=== PATIENT | male | born 1945 | race Caucasian/White ===

== ENCOUNTER 2018-04-11 19:12 | Emergency (ER) | payer MEDICARE, SELFPAY ==
[2018-04-11 19:16] VITALS: BP 167/74; PULSE 88; RESP 18; TEMP 36.9; O2SAT 96
--- NOTE | 2018-04-11 19:19 | DI.CT.S_ITS ---
PROCEDURE: CT HEAD/BRAIN WO CON INDICATIONS: code stroke TECHNIQUE: Noncontrast 4.5 mm thick angled axial sections acquired from the foramen magnum to the vertex, with coronal and sagittal reformats. For radiation dose reduction, the following was used: automated exposure control, adjustment of mA and/or kV according to patient size. COMPARISON: None. FINDINGS: Image quality: Excellent. CSF spaces: Basal cisterns are patent. No extra-axial fluid collections. The ventricles are symmetric in size and shape. There is mild cerebral volume loss, with resultant ventricular and sulcal prominence. Brain: No intracranial hemorrhage, mass, or mass effect. There are subcortical, periventricular and deep white matter hypodensities consistent with mild chronic small vessel ischemic changes. The vogel-white matter junction appears preserved. Skull and face: Calvarium and visualized facial bones appear intact, without suspicious lesions. Sinuses: Visualized sinuses and mastoids are clear. IMPRESSION: 1. No acute intracranial abnormality. Specifically, no imaging contraindications to TPA identified. 2. Mild chronic white matter small vessel ischemic changes. Findings discussed with Dr. Salazar on 04/11/18 at 7:30 PM. Dictated by: Matteo Osorio M.D. on 04/11/2018 at 19:28 Approved by: Matteo Osorio M.D. on 04/11/2018 at 19:33
--- NOTE | 2018-04-11 19:24 | ED.NEUROSD ---
HPI - Neuro Symptoms/Deficit General Chief Complaint: Neuro Symptoms/Deficit Stated Complaint: cant talk, about an hour Time Seen by Provider: 04/11/18 19:24 Source: family Mode of arrival: wheelchair Limitations: no limitations History of Present Illness HPI Narrative: Patient's states that around 1800, the patient began to have trouble speaking. She states she heard him clearing his throat in the kitchen and when she asked if he was okay, she could not understand his answer. Patient states that she came in and asked the patient if he needed to go to the hospital, the patient refused, stating he did not want go. However, after another hour, she noticed that the symptoms still had not improved, and so she decided to bring him. patient's states that the patient was not noted to have any motor deficits. She states that nothing like this has ever happened before, as far as he knows, the patient is healthy. She states he does not like to go to the doctor, and does not primary care physician. She does state that about a week ago, the patient experienced about a 1 hr visual loss in 1 eye. This spontaneously resolved, patient did not receive any medical intervention for this. Patient has not been ill with anything recently; he has no known history of hypertension, diabetes, or coronary artery disease. No prior documented history of stroke. Related Data Previous Rx's Medication Instructions Recorded aspirin 325 mg PO DAILY #90 tab 04/11/18 Allergies Allergy/AdvReac Type Severity Reaction Status Date / Time No Known Drug Allergies Allergy Verified 04/11/18 19:47 Review of Systems Review of Systems All systems reviewed & are unremarkable except as noted in HPI and below Constitutional Denies chills, Denies fever(s), Denies lethargy and Denies weakness Eyes Denies change in vision, Denies eye discharge, Denies irritation and Denies loss of vision ENT Ears, Nose, Mouth, and Throat: Denies change in voice, Denies neck pain and Denies sore throat Cardiovascular Denies chest pain, Denies irregular heart rhythm, Denies lightheadedness, Denies palpitations, Denies dyspnea, Denies dyspnea on exertion and Denies orthopnea Respiratory Denies cough, Denies dyspnea, Denies dyspnea on exertion and Denies wheezing Gastrointestinal Gastrointestinal: Denies abdominal pain, Denies change in bowel habits, Denies diarrhea, Denies nausea and Denies vomiting Genitourinary Denies hematuria, Denies flank pain, Denies urinary incontinence and Denies urinary urgency Musculoskeletal Denies neck pain Integumentary/Breasts Denies pruritus, Denies erythema, Denies rash and Denies wounds Neurologic Denies confusion, Denies loss of vision and Denies weakness Comments: Aphasia Psychiatric Denies anxiety, Denies confusion, Denies depression, Denies homicidal ideation and Denies suicidal ideation Endocrine Denies palpitations Hematologic/Lymphatic Denies easy bruising Allergic/Immunologic Denies wheezing [facility] Medical History Cataracts, bilateral (Acute) Surgical History Hx of cataract surgery (Acute) Social History Smoking Status: Former smoker Exam Initial Vital Signs Initial Vital Signs: Vital Signs Temperature 98.5 F 04/11/18 19:16 Pulse Rate 88 04/11/18 19:16 Respiratory Rate 18 04/11/18 19:16 Blood Pressure 167/74 H 04/11/18 19:16 Pulse Oximetry 96 04/11/18 19:16 Const General: cooperative and well developed Nutritional Appearance: well nourished Orientation: alert, awake, oriented x3 and not confused [facility] Head: normocephalic and atraumatic Ears: external ears normal Nose: external nose normal and No nasal discharge Face and sinus: face symmetric and No dry mucous membranes Mouth: oral mucosae normal and moist mucous membranes Teeth and gingiva: dentition normal Eyes General: appearance normal, both eyes and all related structures Eyelids: eyelids normal Conjunctivae: conjunctivae normal Sclera: sclerae normal Pupils: PERRL EOM: EOM intact bilaterally Neck Neck: normal visual inspection, trachea midline, No lymphadenopathy, No midline deformity and No JVD Lymphatic: No lymphedema Chest Chest: normal inspection of the chest Resp Effort & Inspection: normal respiratory effort, able to speak in complete sentences, no respiratory distress and no use of accessory muscles Auscultation: clear to auscultation bilaterally, no rales, no rhonchi and no wheezes Cardio Rate: regular rate Rhythm: regular rhythm Heart Sounds: no click, no gallops, no murmurs and no rubs Pulses: normal peripheral pulses GI Inspection: non-distended Palpation: soft, no hepatosplenomegaly, No guarding, No pulsatile mass and No tender Back/Spine/Pelvis Back: No CVA tenderness Cervical Spine: cervical ROM normal and No pain with cervical ROM Thoracic/Lumbar Spine: thoracic and lumbar spine normal to inspection Skin General: no rashes or lesions noted, No jaundice and No petechiae Neuro General: alert, oriented x3, no focal motor deficits and CN's II-XI intact bilaterally Speech: abnormal speech ( Patient has largely clear diction, although he occasionally stumbles in the pronunciation of the word. patient's responses are appropriate and coherent. His speech is measured, but does not stand out as being particularly slow. ) Motor: muscle tone normal throughout, strength 5/5 throughout, no pronator drift and no movement abnormalities noted Sensory Exam: no sensory deficits noted Other: NIHSS 2 (very soft--dysarthria) Extrem General: full ROM, no clubbing, cyanosis or edema, no pedal edema and no calf tenderness Psych Appearance: well kempt Mental Status: mental status grossly normal Attitude: cooperative Thought Content: normal and suicidality Judgment: judgment good Scores NIH Stroke Scale Level of Conciousness: Alert, keenly responsive Ask month/age: Answers both questions correctly. Open/close eyes, close hand: Performs both tasks correctly Best gaze horizontal: Normal Visual baez: No visual loss Facial palsy: Normal symetrical movement Left arm drift: No drift for full 10 sec Right arm drift: No drift for full 10 sec Left leg drift: No drift for full 10 sec Right leg drift: No drift for full 10 sec Limb ataxia: Absent Sensory on face/arms/legs: Normal, no sensory loss Best language: Mild to moderate, slurs some words Dysarthria: Mild to mod,some slurring Extinction or inattention: No abnormality Total NIH Stroke scale score: 2 Course Course Narrative: The patient was evaluated as a code stroke, and was taken directly to the CT scanner for a noncontrast head CT. This was performed and found to be negative per radiologist's interpretation. I did go in at this point and evaluate the patient, after which CT of the head and neck was ordered and performed. By this time, patient's speech was starting to improve, and while the nurse had found upon arrival, the patient was not able to articulate and all and spoke almost no words, the patient could now carry on a conversation, although he did state that he felt as though he was speaking more slowly than usual. The patient was taken for CT angio of the head and neck, which did not demonstrate any obvious arterial blockages in the brain circulation. However, it was found the patient had a greater than 90% stenosis of his left carotid artery. The remainder of the patient's workup was unremarkable. I did spend quite a bit of time speaking with this patient and his regarding the results. The patient has been given an aspirin here in the emergency department, and I did explain to him how important it is that he continues on an aspirin every day, To prevent further buildup of plaque in his left carotid artery. Additionally, the patient will need to follow up to discuss having his carotid either stented or having endarterectomy performed. I have discussed with the patient that if he does not address this issue by both the preventative action of taking aspirin in the definitive action of opening up his carotid artery, that he is at very high risk for further cerebral ischemic events, with potentially devastating sequelae. The patient and his both expressed understanding. At this point, the patient has not met criteria for tPA, both due to his improving neurologic status, his low NIHSS score to begin with, and also, his recent cerebral ischemic event in the form of the presumed TIA he had about a week ago. Orders Ordered: ED Orders 04/11/18 19:19 CT head/brain wo con Stat 04/11/18 19:34 CT angio head and neck Stat Comprehensive Metabolic Panel Stat 04/11/18 19:35 Complete Blood Count AUTO DIFF Stat Prothrombin Time INR Stat Discontinued Medications Aspirin (Aspirin) 325 mg PO NOW ONE Stop: 04/11/18 19:35 Last Admin: 04/11/18 19:42 Dose: 325 mg Sodium Chloride (Normal Saline 0.9%) 1,000 mls @ 1,000 mls/hr IV BOLUS ONE Stop: 04/11/18 20:33 Last Infusion: 04/11/18 21:14 Dose: 0 mls/hr Admin: 04/11/18 19:42 Dose: 1,000 mls/hr Vital Signs - 8 hr 04/11/18 19:16 04/11/18 20:25 04/11/18 20:51 Temperature 98.5 F Pulse Rate 88 78 71 Respiratory Rate 18 74 H 98 H Blood Pressure 167/74 H Blood Pressure [Left Arm] 150/78 H 143/64 H Pulse Oximetry 96 98 97 04/11/18 22:00 Temperature Pulse Rate 75 Respiratory Rate 19 Blood Pressure Blood Pressure [Left Arm] 131/59 L Pulse Oximetry 95 MDM - Neuro Symptoms/Deficit Medical Records Attestation: I reviewed the patient's medical records. Lab Data Attestation: I reviewed the patient's lab results. Result diagrams: 04/11/18 19:35 04/11/18 19:34 Lab Results 04/11/18 04/11/18 04/11/18 Range/Units 19:34 19:35 19:35 WBC 6.3 (4.5-11.0) X10^3/uL RBC 4.71 (4.5-5.9) X10^6/uL Hgb 14.6 (13.5-17.5) g/dL Hct 41.9 (41-53) % MCV 88.9 (80-100) fL MCH 30.9 (26-34) PG MCHC 34.7 (30-36) % RDW 13.2 (11.6-14.8) % Plt Count 245 (150-400) X10^3/uL Neut % (Auto) 47.1 L (50-75) % Lymph % (Auto) 39.9 (25-40) % [place] % (Auto) 8.5 (3-14) % Eos % (Auto) 4.0 (2-4) % Baso % (Auto) 0.5 (0-2) % Neut # (Auto) 2900 L (9365-5932) /uL PT 11.1 (10.1-12.7) SECONDS INR 1.0 (0.9-1.3) Sodium 144 (137-145) mmol/L Potassium 3.7 (3.4-5.1) mmol/L Chloride 104 (98-107) mmol/L Carbon Dioxide 26 (22-32) mmol/L BUN 11 (9-20) mg/dL Creatinine 0.90 (0.66-1.25) mg/dL Estimated GFR > 60.0 (>60) mL/min BUN/Creatinine Ratio 12.2 (6-22) Glucose 86 (80-110) mg/dL Calcium 9.4 (8.4-10.2) mg/dL Total Bilirubin 0.4 (0.2-1.3) mg/dL AST 31 (17-59) IU/L ALT 32 (21-72) IU/L Alkaline Phosphatase 57 (38-126) U/L Total Protein 7.1 (6.3-8.2) g/dL Albumin 4.4 (3.5-5.0) g/dL Globulin 2.7 (1.7-4.1) g/dL Albumin/Globulin Ratio 1.6 (1.0-2.8) Point of Care Testing Glucose POC [address] scan - head: Attestation: I personally reviewed and interpreted this imaging study as follows: My impression: negative Radiologist's impression: PROCEDURE: CT HEAD/BRAIN WO CON INDICATIONS: code stroke TECHNIQUE: Noncontrast 4.5 mm thick angled axial sections acquired from the foramen magnum to the vertex, with coronal and sagittal reformats. For radiation dose reduction, the following was used: automated exposure control, adjustment of mA and/or kV according to patient size. COMPARISON: None. FINDINGS: Image quality: Excellent. CSF spaces: Basal cisterns are patent. No extra-axial fluid collections. The ventricles are symmetric in size and shape. There is mild cerebral volume loss, with resultant ventricular and sulcal prominence. Brain: No intracranial hemorrhage, mass, or mass effect. There are subcortical, periventricular and deep white matter hypodensities consistent with mild chronic small vessel ischemic changes. The whalen-white matter junction appears preserved. Skull and face: Calvarium and visualized facial bones appear intact, without suspicious lesions. Sinuses: Visualized sinuses and mastoids are clear. IMPRESSION: 1. No acute intracranial abnormality. Specifically, no imaging contraindications to TPA identified. 2. Mild chronic white matter small vessel ischemic changes. Findings discussed with Dr. Salazar on 04/11/18 at 7:30 PM. Dictated by: Matteo Osorio M.D. on 04/11/2018 at 19:28 Approved by: Matteo Osorio M.D. on 04/11/2018 at 19:33 CT angio of head and neck: Radiologist's impression: [address] [address] [address] Scan Report Signed Patient: Shadi Campbell [facility]#: [id number] : 4Acct:[id number] Age/Sex: 73 / MDate of Service: 04/11/18 Loc: ED Accession Number: [id number] Procedure: CT angio head and neck Ordering Provider: Ness Salazar MD PROCEDURE: CT ANGIO HEAD AND NECK INDICATIONS: stroke-dysphasia TECHNIQUE: Pre-contrast 4.5 mm thick sections acquired from the foramen magnum to the vertex. After the administration of intravenous contrast, 1 mm thick sections acquired from the aortic arch through the [place] of [place]. Post-contrast 4.5 mm thick sections then re-acquired from the foramen magnum to the vertex. 3-dimensional pkzptci-yroxlaxhw-ruwfknfjjw (MIP) and/or volume rendering reformats were acquired of the central intracranial vasculature and neck separately. COMPARISON: [facility], CT, CT HEAD/BRAIN WO CON, 04/11/2018, 19:14. FINDINGS: Image quality: There is streak artifact from patient's dental hardware. BRAIN: CSF spaces: Basal cisterns are patent. No extra-axial fluid collections. Ventricles are normal in size and shape. Brain: No hematoma collections, mass, or mass effect. Whalen-white matter interface is preserved. No abnormal intracranial enhancement. Skull and face: Calvarium and facial bones appear intact, without suspicious lesions. Orbits appear normal. Sinuses: Sinuses and mastoids are clear. HEAD CT ANGIOGRAPHY: Anterior circulation: Intracranial internal carotid arteries are patent bilaterally with mild multifocal narrowing in the cavernous segments bilaterally. The anterior cerebral arteries appear patent bilaterally. The middle cerebral arteries also appear patent bilaterally. No high-grade stenosis or occlusion. No discrete filling defects. The anterior maintain artery is patent. No cerebral aneurysms identified. Posterior circulation: Visualized portions of the vertebral arteries demonstrate normal caliber, and join to form a normal appearing basilar artery. The posterior cerebral arteries appear patent bilaterally. No high-grade stenosis or occlusion. No cerebral aneurysms identified. NECK CT ANGIOGRAPHY: Carotid system: The great vessels demonstrate a conventional anatomy as they arise from the aortic arch. The origins of the common carotid arteries appear patent. The common carotid arteries demonstrate normal caliber and courses. There is bilateral partially calcified plaque in the carotid bulbs with severe near-occlusive narrowing of greater than 90% in the left carotid bulb. There is subsequent reconstitution of flow. The left internal carotid artery appears widely patent up to the level of the cavernous segment where there is mild multifocal narrowing. On the right, there is mild narrowing of less than 50% in the right carotid bulb. Posterior circulation: The origins of the vertebral arteries both appear widely patent. The more superior extracranial portions of both vertebral arteries also demonstrate normal courses and calibers. They join to form a normal appearing basilar artery. Soft tissues: Visualized neck soft tissues demonstrate no suspicious abnormalities. Bones: No suspicious bony lesions. Visualized cervical spine demonstrates minimal anterolisthesis at C4-C5 and C7-T1. There is multilevel disc space narrowing including moderate narrowing at C5-C6 and C6-C7. IMPRESSION: 1. Severe narrowing of greater than 90% in the left carotid bulb. 2. No high-grade stenosis, occlusion, or filling defects in the central intracranial arteries. 3. No definite acute intracranial abnormality. Any quantitative measurements of stenosis were performed using NASCET criteria. Dictated by: Matteo Osorio M.D. on 04/11/2018 at 20:34 Approved by: Matteo Osorio M.D. on 04/11/2018 at 20:45 Discharge Plan Departure Patient Disposition: Home Clinical Impression: Transient cerebral ischemia Discharge Date/Time: 04/11/18 22:25 Interventions: ED Discharge Assessment Last Done: 04/11/18 22:22 Instructions: DI for Transient Ischemic Attack Activity Restrictions/Additional Instructions: Your CT scan with contrast shows significant narrowing of your left carotid artery, with greater than 90% of the artery blocked. This is concerning with the transient strokes that you have had in the last couple of weeks. As such, it is very important that you take aspirin every single day to prevent further plaque from blocking your artery and causing further strokes. Additionally, it is extremely important that you follow up as soon as possible to have a procedure to clear the blockage. Please call Dr. Bolanos's office 1st thing tomorrow morning to set up a follow-up appointment. Prescriptions: New aspirin 325 mg tablet 325 mg PO DAILY Qty: 90 RF: 0 Referrals: Emery Bolanos MD [Non-Staff] - Mian Hopkins PA-C [Primary Care Provider] -
--- NOTE | 2018-04-11 19:27 | ED_ITS ---
HPI - Neuro Symptoms/Deficit General Chief Complaint: Neuro Symptoms/Deficit Stated Complaint: cant talk, about an hour Time Seen by Provider: 04/11/18 19:24 Source: family Mode of arrival: wheelchair Limitations: no limitations History of Present Illness HPI Narrative: Patient's states that around 1800, the patient began to have trouble speaking. She states she heard him clearing his throat in the kitchen and when she asked if he was okay, she could not understand his answer. Patient states that she came in and asked the patient if he needed to go to the hospital, the patient refused, stating he did not want go. However, after another hour, she noticed that the symptoms still had not improved, and so she decided to bring him. patient's states that the patient was not noted to have any motor deficits. She states that nothing like this has ever happened before, as far as he knows, the patient is healthy. She states he does not like to go to the doctor, and does not primary care physician. She does state that about a week ago, the patient experienced about a 1 hr visual loss in 1 eye. This spontaneously resolved, patient did not receive any medical intervention for this. Patient has not been ill with anything recently ; he has no known history of hypertension, diabetes, or coronary artery disease. No prior documented history of stroke. Related Data Previous Rx's Medication Instructions Recorded aspirin 325 mg PO DAILY #90 tab 04/11/18 Allergies Allergy/AdvReac Type Severity Reaction Status Date / Time No Known Drug Allergies Allergy Verified 04/11/18 19:47 Review of Systems Review of Systems All systems reviewed & are unremarkable except as noted in HPI and below Constitutional Denies chills, Denies fever(s), Denies lethargy and Denies weakness Eyes Denies change in vision, Denies eye discharge, Denies irritation and Denies loss of vision ENT Ears, Nose, Mouth, and Throat: Denies change in voice, Denies neck pain and Denies sore throat Cardiovascular Denies chest pain, Denies irregular heart rhythm, Denies lightheadedness, Denies palpitations, Denies dyspnea, Denies dyspnea on exertion and Denies orthopnea Respiratory Denies cough, Denies dyspnea, Denies dyspnea on exertion and Denies wheezing Gastrointestinal Gastrointestinal: Denies abdominal pain, Denies change in bowel habits, Denies diarrhea, Denies nausea and Denies vomiting Genitourinary Denies hematuria, Denies flank pain, Denies urinary incontinence and Denies urinary urgency Musculoskeletal Denies neck pain Integumentary/Breasts Denies pruritus, Denies erythema, Denies rash and Denies wounds Neurologic Denies confusion, Denies loss of vision and Denies weakness Comments: Aphasia Psychiatric Denies anxiety, Denies confusion, Denies depression, Denies homicidal ideation and Denies suicidal ideation Endocrine Denies palpitations Hematologic/Lymphatic Denies easy bruising Allergic/Immunologic Denies wheezing [facility] Medical History Cataracts, bilateral (Acute) Surgical History Hx of cataract surgery (Acute) Social History Smoking Status: Former smoker Exam Initial Vital Signs Initial Vital Signs: Vital Signs Temperature 98.5 F 04/11/18 19:16 Pulse Rate 88 04/11/18 19:16 Respiratory Rate 18 04/11/18 19:16 Blood Pressure 167/74 H 04/11/18 19:16 Pulse Oximetry 96 04/11/18 19:16 Const General: cooperative and well developed Nutritional Appearance: well nourished Orientation: alert, awake, oriented x3 and not confused [facility] Head: normocephalic and atraumatic Ears: external ears normal Nose: external nose normal and No nasal discharge Face and sinus: face symmetric and No dry mucous membranes Mouth: oral mucosae normal and moist mucous membranes Teeth and gingiva: dentition normal Eyes General: appearance normal, both eyes and all related structures Eyelids: eyelids normal Conjunctivae: conjunctivae normal Sclera: sclerae normal Pupils: PERRL EOM: EOM intact bilaterally Neck Neck: normal visual inspection, trachea midline, No lymphadenopathy, No midline deformity and No JVD Lymphatic: No lymphedema Chest Chest: normal inspection of the chest Resp Effort & Inspection: normal respiratory effort, able to speak in complete sentences, no respiratory distress and no use of accessory muscles Auscultation: clear to auscultation bilaterally, no rales, no rhonchi and no wheezes Cardio Rate: regular rate Rhythm: regular rhythm Heart Sounds: no click, no gallops, no murmurs and no rubs Pulses: normal peripheral pulses GI Inspection: non-distended Palpation: soft, no hepatosplenomegaly, No guarding, No pulsatile mass and No tender Back/Spine/Pelvis Back: No CVA tenderness Cervical Spine: cervical ROM normal and No pain with cervical ROM Thoracic/Lumbar Spine: thoracic and lumbar spine normal to inspection Skin General: no rashes or lesions noted, No jaundice and No petechiae Neuro General: alert, oriented x3, no focal motor deficits and CN's II-XI intact bilaterally Speech: abnormal speech ( Patient has largely clear diction, although he occasionally stumbles in the pronunciation of the word. patient's responses are appropriate and coherent. His speech is measured, but does not stand out as being particularly slow. ) Motor: muscle tone normal throughout, strength 5/5 throughout, no pronator drift and no movement abnormalities noted Sensory Exam: no sensory deficits noted Other: NIHSS 2 (very soft--dysarthria) Extrem General: full ROM, no clubbing, cyanosis or edema, no pedal edema and no calf tenderness Psych Appearance: well kempt Mental Status: mental status grossly normal Attitude: cooperative Thought Content: normal and suicidality Judgment: judgment good Scores NIH Stroke Scale Level of Conciousness: Alert, keenly responsive Ask month/age: Answers both questions correctly. Open/close eyes, close hand: Performs both tasks correctly Best gaze horizontal: Normal Visual baez: No visual loss Facial palsy: Normal symetrical movement Left arm drift: No drift for full 10 sec Right arm drift: No drift for full 10 sec Left leg drift: No drift for full 10 sec Right leg drift: No drift for full 10 sec Limb ataxia: Absent Sensory on face/arms/legs: Normal, no sensory loss Best language: Mild to moderate, slurs some words Dysarthria: Mild to mod,some slurring Extinction or inattention: No abnormality Total NIH Stroke scale score: 2 Course Course Narrative: The patient was evaluated as a code stroke, and was taken directly to the CT scanner for a noncontrast head CT. This was performed and found to be negative per radiologist's interpretation. I did go in at this point and evaluate the patient, after which CT of the head and neck was ordered and performed. By this time, patient's speech was starting to improve, and while the nurse had found upon arrival, the patient was not able to articulate and all and spoke almost no words, the patient could now carry on a conversation , although he did state that he felt as though he was speaking more slowly than usual. The patient was taken for CT angio of the head and neck, which did not demonstrate any obvious arterial blockages in the brain circulation. However, it was found the patient had a greater than 90% stenosis of his left carotid artery. The remainder of the patient's workup was unremarkable. I did spend quite a bit of time speaking with this patient and his regarding the results. The patient has been given an aspirin here in the emergency department , and I did explain to him how important it is that he continues on an aspirin every day, To prevent further buildup of plaque in his left carotid artery. Additionally, the patient will need to follow up to discuss having his carotid either stented or having endarterectomy performed. I have discussed with the patient that if he does not address this issue by both the preventative action of taking aspirin in the definitive action of opening up his carotid artery, that he is at very high risk for further cerebral ischemic events, with potentially devastating sequelae. The patient and his both expressed understanding. At this point, the patient has not met criteria for tPA, both due to his improving neurologic status, his low NIHSS score to begin with, and also, his recent cerebral ischemic event in the form of the presumed TIA he had about a week ago. Orders Ordered: ED Orders 04/11/18 19:19 CT head/brain wo con Stat 04/11/18 19:34 CT angio head and neck Stat Comprehensive Metabolic Panel Stat 04/11/18 19:35 Complete Blood Count AUTO DIFF Stat Prothrombin Time INR Stat Discontinued Medications Aspirin (Aspirin) 325 mg PO NOW ONE Stop: 04/11/18 19:35 Last Admin: 04/11/18 19:42 Dose: 325 mg Sodium Chloride (Normal Saline 0.9%) 1,000 mls @ 1,000 mls/hr IV BOLUS ONE Stop: 04/11/18 20:33 Last Infusion: 04/11/18 21:14 Dose: 0 mls/hr Admin: 04/11/18 19:42 Dose: 1,000 mls/hr Vital Signs - 8 hr 04/11/18 19:16 04/11/18 20:25 04/11/18 20:51 Temperature 98.5 F Pulse Rate 88 78 71 Respiratory Rate 18 74 H 98 H Blood Pressure 167/74 H Blood Pressure [Left Arm] 150/78 H 143/64 H Pulse Oximetry 96 98 97 04/11/18 22:00 Temperature Pulse Rate 75 Respiratory Rate 19 Blood Pressure Blood Pressure [Left Arm] 131/59 L Pulse Oximetry 95 MDM - Neuro Symptoms/Deficit Medical Records Attestation: I reviewed the patient's medical records. Lab Data Attestation: I reviewed the patient's lab results. Result diagrams: 04/11/18 19:35 04/11/18 19:34 Lab Results 04/11/18 04/11/18 04/11/18 Range/Units 19:34 19:35 19:35 WBC 6.3 (4.5-11.0) X10^3/uL RBC 4.71 (4.5-5.9) X10^6/uL Hgb 14.6 (13.5-17.5) g/dL Hct 41.9 (41-53) % MCV 88.9 (80-100) fL MCH 30.9 (26-34) PG MCHC 34.7 (30-36) % RDW 13.2 (11.6-14.8) % Plt Count 245 (150-400) X10^3/uL Neut % (Auto) 47.1 L (50-75) % Lymph % (Auto) 39.9 (25-40) % Emanuel % (Auto) 8.5 (3-14) % Eos % (Auto) 4.0 (2-4) % Baso % (Auto) 0.5 (0-2) % Neut # (Auto) 2900 L (1398-9621) /uL PT 11.1 (10.1-12.7) SECONDS INR 1.0 (0.9-1.3) Sodium 144 (137-145) mmol/L Potassium 3.7 (3.4-5.1) mmol/L Chloride 104 (98-107) mmol/L Carbon Dioxide 26 (22-32) mmol/L BUN 11 (9-20) mg/dL Creatinine 0.90 (0.66-1.25) mg/dL Estimated GFR > 60.0 (>60) mL/min BUN/Creatinine Ratio 12.2 (6-22) Glucose 86 (80-110) mg/dL Calcium 9.4 (8.4-10.2) mg/dL Total Bilirubin 0.4 (0.2-1.3) mg/dL AST 31 (17-59) IU/L ALT 32 (21-72) IU/L Alkaline Phosphatase 57 (38-126) U/L Total Protein 7.1 (6.3-8.2) g/dL Albumin 4.4 (3.5-5.0) g/dL Globulin 2.7 (1.7-4.1) g/dL Albumin/Globulin Ratio 1.6 (1.0-2.8) Point of Care Testing Glucose POC [address] scan - head: Attestation: I personally reviewed and interpreted this imaging study as follows: My impression: negative Radiologist's impression: PROCEDURE: CT HEAD/BRAIN WO CON INDICATIONS: code stroke TECHNIQUE: Noncontrast 4.5 mm thick angled axial sections acquired from the foramen magnum to the vertex, with coronal and sagittal reformats. For radiation dose reduction, the following was used: automated exposure control, adjustment of mA and/or kV according to patient size. COMPARISON: None. FINDINGS: Image quality: Excellent. CSF spaces: Basal cisterns are patent. No extra-axial fluid collections. The ventricles are symmetric in size and shape. There is mild cerebral volume loss , with resultant ventricular and sulcal prominence. Brain: No intracranial hemorrhage, mass, or mass effect. There are subcortical , periventricular and deep white matter hypodensities consistent with mild chronic small vessel ischemic changes. The whalen-white matter junction appears preserved. Skull and face: Calvarium and visualized facial bones appear intact, without suspicious lesions. Sinuses: Visualized sinuses and mastoids are clear. IMPRESSION: 1. No acute intracranial abnormality. Specifically, no imaging contraindications to TPA identified. 2. Mild chronic white matter small vessel ischemic changes. Findings discussed with Dr. Salazar on 04/11/18 at 7:30 PM. Dictated by: Matteo Osorio M.D. on 04/11/2018 at 19:28 Approved by: Matteo Osorio M.D. on 04/11/2018 at 19:33 CT angio of head and neck: Radiologist's impression: [address] [address] [address] Scan Report Signed Patient: Shadi Campbell [facility]#: [id number] : 4Acct:[id number] Age/Sex: 73 / MDate of Service: 04/11/18 Loc: ED Accession Number: [id number] Procedure: CT angio head and neck Ordering Provider: Ness Salazar MD PROCEDURE: CT ANGIO HEAD AND NECK INDICATIONS: stroke-dysphasia TECHNIQUE: Pre-contrast 4.5 mm thick sections acquired from the foramen magnum to the vertex. After the administration of intravenous contrast, 1 mm thick sections acquired from the aortic arch through the [place] of [place]. Post-contrast 4.5 mm thick sections then re- acquired from the foramen magnum to the vertex. 3-dimensional maximum-intensity- projection (MIP) and/or volume rendering reformats were acquired of the central intracranial vasculature and neck separately. COMPARISON: [facility], CT, CT HEAD/BRAIN WO CON, 04/11/2018, 19:14. FINDINGS: Image quality: There is streak artifact from patient's dental hardware. BRAIN: CSF spaces: Basal cisterns are patent. No extra-axial fluid collections. Ventricles are normal in size and shape. Brain: No hematoma collections, mass, or mass effect. Whalen-white matter interface is preserved. No abnormal intracranial enhancement. Skull and face: Calvarium and facial bones appear intact, without suspicious lesions. Orbits appear normal. Sinuses: Sinuses and mastoids are clear. HEAD CT ANGIOGRAPHY: Anterior circulation: Intracranial internal carotid arteries are patent bilaterally with mild multifocal narrowing in the cavernous segments bilaterally. The anterior cerebral arteries appear patent bilaterally. The middle cerebral arteries also appear patent bilaterally. No high-grade stenosis or occlusion. No discrete filling defects. The anterior maintain artery is patent. No cerebral aneurysms identified. Posterior circulation: Visualized portions of the vertebral arteries demonstrate normal caliber, and join to form a normal appearing basilar artery. The posterior cerebral arteries appear patent bilaterally. No high-grade stenosis or occlusion. No cerebral aneurysms identified. NECK CT ANGIOGRAPHY: Carotid system: The great vessels demonstrate a conventional anatomy as they arise from the aortic arch. The origins of the common carotid arteries appear patent. The common carotid arteries demonstrate normal caliber and courses. There is bilateral partially calcified plaque in the carotid bulbs with severe near-occlusive narrowing of greater than 90% in the left carotid bulb. There is subsequent reconstitution of flow. The left internal carotid artery appears widely patent up to the level of the cavernous segment where there is mild multifocal narrowing. On the right, there is mild narrowing of less than 50% in the right carotid bulb. Posterior circulation: The origins of the vertebral arteries both appear widely patent. The more superior extracranial portions of both vertebral arteries also demonstrate normal courses and calibers. They join to form a normal appearing basilar artery. Soft tissues: Visualized neck soft tissues demonstrate no suspicious abnormalities. Bones: No suspicious bony lesions. Visualized cervical spine demonstrates minimal anterolisthesis at C4-C5 and C7-T1. There is multilevel disc space narrowing including moderate narrowing at C5-C6 and C6-C7. IMPRESSION: 1. Severe narrowing of greater than 90% in the left carotid bulb. 2. No high-grade stenosis, occlusion, or filling defects in the central intracranial arteries. 3. No definite acute intracranial abnormality. Any quantitative measurements of stenosis were performed using NASCET criteria. Dictated by: Matteo Osorio M.D. on 04/11/2018 at 20:34 Approved by: Matteo Osorio M.D. on 04/11/2018 at 20:45 Discharge Plan Departure Patient Disposition: Home Clinical Impression: Transient cerebral ischemia Discharge Date/Time: 04/11/18 22:25 Interventions: ED Discharge Assessment Last Done: 04/11/18 22:22 Instructions: DI for Transient Ischemic Attack Activity Restrictions/Additional Instructions: Your CT scan with contrast shows significant narrowing of your left carotid artery, with greater than 90% of the artery blocked. This is concerning with the transient strokes that you have had in the last couple of weeks. As such, it is very important that you take aspirin every single day to prevent further plaque from blocking your artery and causing further strokes. Additionally, it is extremely important that you follow up as soon as possible to have a procedure to clear the blockage. Please call Dr. Bolanos's office 1st thing tomorrow morning to set up a follow-up appointment. Prescriptions: New aspirin 325 mg tablet 325 mg PO DAILY Qty: 90 RF: 0 Referrals: Emery Bolanos MD [Non-Staff] - Mian Hopkins PA-C [Primary Care Provider] -
--- NOTE | 2018-04-11 19:34 | DI.CT.S_ITS ---
PROCEDURE: CT ANGIO HEAD AND NECK INDICATIONS: stroke-dysphasia TECHNIQUE: Pre-contrast 4.5 mm thick sections acquired from the foramen magnum to the vertex. After the administration of intravenous contrast, 1 mm thick sections acquired from the aortic arch through the [place] of [place]. Post-contrast 4.5 mm thick sections then re-acquired from the foramen magnum to the vertex. 3-dimensional nabgczs-aeqmlttue-wmweavtqct (MIP) and/or volume rendering reformats were acquired of the central intracranial vasculature and neck separately. COMPARISON: [facility], CT, CT HEAD/BRAIN WO CON, 04/11/2018, 19:14. FINDINGS: Image quality: There is streak artifact from patient's dental hardware. BRAIN: CSF spaces: Basal cisterns are patent. No extra-axial fluid collections. Ventricles are normal in size and shape. Brain: No hematoma collections, mass, or mass effect. Whalen-white matter interface is preserved. No abnormal intracranial enhancement. Skull and face: Calvarium and facial bones appear intact, without suspicious lesions. Orbits appear normal. Sinuses: Sinuses and mastoids are clear. HEAD CT ANGIOGRAPHY: Anterior circulation: Intracranial internal carotid arteries are patent bilaterally with mild multifocal narrowing in the cavernous segments bilaterally. The anterior cerebral arteries appear patent bilaterally. The middle cerebral arteries also appear patent bilaterally. No high-grade stenosis or occlusion. No discrete filling defects. The anterior maintain artery is patent. No cerebral aneurysms identified. Posterior circulation: Visualized portions of the vertebral arteries demonstrate normal caliber, and join to form a normal appearing basilar artery. The posterior cerebral arteries appear patent bilaterally. No high-grade stenosis or occlusion. No cerebral aneurysms identified. NECK CT ANGIOGRAPHY: Carotid system: The great vessels demonstrate a conventional anatomy as they arise from the aortic arch. The origins of the common carotid arteries appear patent. The common carotid arteries demonstrate normal caliber and courses. There is bilateral partially calcified plaque in the carotid bulbs with severe near-occlusive narrowing of greater than 90% in the left carotid bulb. There is subsequent reconstitution of flow. The left internal carotid artery appears widely patent up to the level of the cavernous segment where there is mild multifocal narrowing. On the right, there is mild narrowing of less than 50% in the right carotid bulb. Posterior circulation: The origins of the vertebral arteries both appear widely patent. The more superior extracranial portions of both vertebral arteries also demonstrate normal courses and calibers. They join to form a normal appearing basilar artery. Soft tissues: Visualized neck soft tissues demonstrate no suspicious abnormalities. Bones: No suspicious bony lesions. Visualized cervical spine demonstrates minimal anterolisthesis at C4-C5 and C7-T1. There is multilevel disc space narrowing including moderate narrowing at C5-C6 and C6-C7. IMPRESSION: 1. Severe narrowing of greater than 90% in the left carotid bulb. 2. No high-grade stenosis, occlusion, or filling defects in the central intracranial arteries. 3. No definite acute intracranial abnormality. Any quantitative measurements of stenosis were performed using NASCET criteria. Dictated by: Matteo Osorio M.D. on 04/11/2018 at 20:34 Approved by: Matteo Osorio M.D. on 04/11/2018 at 20:45
[2018-04-11] MEDS: SODIUM CHLORIDE 0.9% 1,000 ML 1000 ML IV (19:42)
[2018-04-11] MEDS: ASPIRIN 325 MG TABLET PO (19:42)
--- NOTE | 2018-04-11 19:51 | PC.NURSE ---
Pt's symptoms are now resolved. At approx 1800 today after eating dinner, patient's stated he was all of the sudden unable to talk. He was ambulatory at the time. Patient seemed a little confused, per the . Upon triage, patient initially unable to tell nurse his name. Code stroke was activated. After CT scan completed, patient able to verbalize without issue. Mild slurring of the speech during NIH exam. No other deficit noted. At 1945, it is noted that patient's speech is clear and he is coherent. He states that he still feels that he can't talk good.
[2018-04-11 19:59] LABS: Add Manual Diff / Slide Review NO; Basophils Percent Auto 0.5 % (0-2); Hematocrit 41.9 % (41-53); Hemoglobin 14.6 g/dL (13.5-17.5); Lymphocytes Percent Auto 39.9 % (25-40); Mean Corpuscular HGB Conc 34.7 % (30-36); Mean Corpuscular Hemoglobin 30.9 PG (26-34); Mean Corpuscular Volume 88.9 fL (80-100); Monocytes Percent Auto 8.5 % (3-14); Neutrophils Absolute Auto 2900 /uL (3000-5900); Neutrophils Percent Auto 47.1 % (50-75); Platelet Count 245 X10^3/uL (150-400); Red Blood Cell Count 4.71 X10^6/uL (4.5-5.9); Red Cell Distribution Width 13.2 % (11.6-14.8); White Blood Cell Count 6.3 X10^3/uL (4.5-11.0)
[2018-04-11 20:09] LABS: Alanine Aminotransferase 32 IU/L (21-72); Albumin 4.4 g/dL (3.5-5.0); Albumin Globulin Ratio 1.6 (1.0-2.8); Alkaline Phosphatase 57 U/L (38-126); Aspartate Aminotransferase 31 IU/L (17-59); BUN Creatinine Ratio 12.2 (6-22); Bilirubin Total 0.4 mg/dL (0.2-1.3); Blood Urea Nitrogen 11 mg/dL (9-20); Calcium 9.4 mg/dL (8.4-10.2); Carbon Dioxide 26 mmol/L (22-32); Chloride 104 mmol/L (98-107); Estimated Glomerular Filt Rate > 60.0 mL/min (>60); Globulin 2.7 g/dL (1.7-4.1); Glucose 86 mg/dL (80-110); HEMOLYSIS < 15 (0-50); Potassium 3.7 mmol/L (3.4-5.1); Sodium 144 mmol/L (137-145); Total Protein 7.1 g/dL (6.3-8.2)
[2018-04-11 20:25] VITALS: BP 150/78; PULSE 78; RESP 74; O2SAT 98
[2018-04-11 20:51] VITALS: BP 143/64; PULSE 71; RESP 98; O2SAT 97
[2018-04-11 21:19] LABS: Prothrombin Time 11.1 SECONDS (10.1-12.7)
[2018-04-11 22:00] VITALS: BP 131/59; PULSE 75; RESP 19; O2SAT 95
== END 2018-04-11 22:25 | disposition home or self-care (01) ==
PROVIDERS: Emergency Provider Emergency Medicine; PCP Physician Assistant
DX: G45.9 Transient cerebral ischemic attack, unspecified (principal)
CPT/HCPCS: 36415; 36591; 70450; 70496; 70498; 80053; 82962; 85025; 85610; 93005; 93010; 93041; 96360; 96361; 99283; 99285; 99291; Q9967

== ENCOUNTER → 2018-05-24 15:50 | Outpatient (CLI) | payer MEDICARE, SELFPAY | PROVIDERS: PCP Internal Medicine; Visit Provider Internal Medicine | DX: R10.0 Acute abdomen (principal) ==

== ENCOUNTER → 2018-05-25 10:12 | Outpatient (CLI) | payer MEDICARE, SELFPAY | PROVIDERS: PCP Internal Medicine; Visit Provider Internal Medicine | DX: R10.9 Unspecified abdominal pain (principal) | CPT/HCPCS: 86677 ==

== ENCOUNTER → 2019-11-14 09:15 | Outpatient (CLI) | payer MEDICARE, SELFPAY ==
[2019-11-14 09:46] LABS: Alanine Aminotransferase 29 IU/L (<50); Albumin 4.8 g/dL (3.5-5.0); Albumin Globulin Ratio 1.7 (1.0-2.8); Alkaline Phosphatase 63 U/L (38-126); Aspartate Aminotransferase 37 IU/L (17-59); BUN Creatinine Ratio 21.9 (6-22); Bilirubin Total 0.8 mg/dL (0.2-1.3); Blood Urea Nitrogen 21 mg/dL (9-20); Calcium 9.7 mg/dL (8.4-10.2); Carbon Dioxide 31 mmol/L (22-32); Chloride 103 mmol/L (98-107); Cholesterol 140 mg/dL (140-199); Estimated Glomerular Filt Rate > 60.0 mL/min (>60); Globulin 2.9 g/dL (1.7-4.1); Glucose 97 mg/dL (80-110); HDL Cholesterol 49 mg/dL (40-60); HEMOLYSIS < 15 (0-50); LDL Cholesterol Calculated 61 mg/dL (<100); Potassium 4.7 mmol/L (3.4-5.1); Sodium 139 mmol/L (137-145); Total Protein 7.7 g/dL (6.3-8.2); Triglycerides 148 mg/dL (35-150)
== END ==
PROVIDERS: PCP Internal Medicine; Referring Provider Internal Medicine; Visit Provider Internal Medicine
DX: E78.2 Mixed hyperlipidemia (principal); I10 Essential (primary) hypertension
CPT/HCPCS: 36415; 80053; 80061

== ENCOUNTER → 2020-07-18 08:11 | Outpatient (CLI) | payer MEDICARE, SELFPAY ==
[2020-07-18] MEDS: COVID-19 VACC #1, MRNA(MOD) 100 MCG/0.5 ML VIAL IM (08:22)
== END ==
PROVIDERS: PCP Internal Medicine; Visit Provider Internal Medicine
DX: Z23 Encounter for immunization (principal)
CPT/HCPCS: 0011A; 91301

== ENCOUNTER → 2020-08-15 07:57 | Outpatient (CLI) | payer MEDICARE, SELFPAY ==
[2020-08-15] MEDS: COVID-19 VACC #2, MRNA(MOD) 100 MCG/0.5 ML VIAL IM (08:07)
== END ==
PROVIDERS: PCP Internal Medicine; Visit Provider Internal Medicine
DX: Z23 Encounter for immunization (principal)
CPT/HCPCS: 0012A; 91301

== ENCOUNTER → 2021-12-13 16:12 | Outpatient (CLI) | payer MEDICARE, SELFPAY ==
[2021-12-13 18:30] LABS: Alanine Aminotransferase 46 IU/L (<50); Albumin 4.3 g/dL (3.5-5.0); Albumin Globulin Ratio 1.6 (1.0-2.8); Alkaline Phosphatase 58 U/L (38-126); Aspartate Aminotransferase 37 IU/L (17-59); BUN Creatinine Ratio 16.1 (6-22); Bilirubin Total 0.5 mg/dL (0.2-1.3); Blood Urea Nitrogen 15 mg/dL (9-20); Calcium 8.8 mg/dL (8.4-10.2); Carbon Dioxide 29 mmol/L (22-32); Chloride 104 mmol/L (98-107); Estimated Glomerular Filt Rate > 60 mL/min (>60); Globulin 2.7 g/dL (1.7-4.1); Glucose 88 mg/dL (80-110); HEMOLYSIS < 15 (0-50); Potassium 4.2 mmol/L (3.4-5.1); Sodium 141 mmol/L (137-145)
== END ==
PROVIDERS: PCP Internal Medicine; Referring Provider Internal Medicine; Visit Provider Internal Medicine
DX: E78.2 Mixed hyperlipidemia (principal); I10 Essential (primary) hypertension
CPT/HCPCS: 36415; 80053

== ENCOUNTER → 2023-04-23 09:22 | Outpatient (CLI) | payer MEDICARE, SELFPAY ==
[2023-04-23 10:44] LABS: Alanine Aminotransferase 25 IU/L (<50); Albumin Globulin Ratio 1.5 (1.0-2.8); Alkaline Phosphatase 52 U/L (38-126); Aspartate Aminotransferase 26 IU/L (17-59); BUN Creatinine Ratio 19.2 (6-22); Bilirubin Total 0.8 mg/dL (0.2-1.3); Blood Urea Nitrogen 19 mg/dL (9-20); Calcium 9.3 mg/dL (8.4-10.2); Carbon Dioxide 30 mmol/L (22-32); Chloride 103 mmol/L (98-107); Estimated Glomerular Filt Rate > 60 mL/min (>60); Globulin 2.6 g/dL (1.7-4.1); Glucose 108 mg/dL (80-110); HEMOLYSIS < 15 (0-50); Potassium 4.3 mmol/L (3.4-5.1); Sodium 138 mmol/L (137-145); Total Protein 6.6 g/dL (6.3-8.2); Triglycerides 133 mg/dL (35-150)
[2023-04-23 10:45] LABS: Cholesterol 139 mg/dL (140-199); HDL Cholesterol 52 mg/dL (40-60); LDL Cholesterol Calculated 60 mg/dL (<100)
== END ==
PROVIDERS: PCP Internal Medicine; Referring Provider Internal Medicine; Visit Provider Internal Medicine
DX: I10 Essential (primary) hypertension (principal); E78.5 Hyperlipidemia, unspecified
CPT/HCPCS: 36415; 80053; 80061

== ENCOUNTER → 2024-08-16 08:24 | Outpatient (CLI) | payer MEDICARE, SELFPAY ==
[2024-08-16 10:10] LABS: Alanine Aminotransferase 32 IU/L (<50); Albumin 4.6 g/dL (3.5-5.0); Alkaline Phosphatase 57 U/L (38-126); Aspartate Aminotransferase 32 IU/L (17-59); BUN Creatinine Ratio 21.9 (6-22); Bilirubin Total 0.8 mg/dL (0.2-1.3); Blood Urea Nitrogen 23 mg/dL (9-20); Calcium 9.3 mg/dL (8.4-10.2); Carbon Dioxide 26 mmol/L (22-32); Chloride 103 mmol/L (98-107); Cholesterol 135 mg/dL (140-199); Estimated Glomerular Filt Rate > 60 mL/min (>60); Globulin 2.3 g/dL (1.7-4.1); Glucose 104 mg/dL (80-110); HDL Cholesterol 49 mg/dL (40-60); HEMOLYSIS < 15 (0-50); LDL Cholesterol Calculated 62 mg/dL (<100); Potassium 5.1 mmol/L (3.4-5.1); Sodium 138 mmol/L (137-145); Total Protein 6.9 g/dL (6.3-8.2); Triglycerides 118 mg/dL (35-150)
== END ==
PROVIDERS: PCP Internal Medicine; Referring Provider Internal Medicine; Visit Provider Internal Medicine
DX: E78.5 Hyperlipidemia, unspecified (principal); I10 Essential (primary) hypertension
CPT/HCPCS: 36415; 80053; 80061